=== PATIENT | male | born 1990 | race Caucasian/White ===

== ENCOUNTER → 2020-04-21 11:13 | Outpatient (BNVA) | payer SELFPAY | PROVIDERS: PCP Internal Medicine; Visit Provider Internal Medicine | DX: Z76.89 Persons encountering health services in other specified circumstances (principal) ==

== ENCOUNTER 2024-02-26 08:13 | Outpatient (AMB) | payer BC, SELFPAY ==
--- NOTE | 2024-02-26 08:24 | MHC.OFFWIV ---
Intake Vital Signs 02/26/24 08:25 Height 5 ft 9 in Weight 202 lb BMI 29.8 BP 128/84 Blood Pressure Location Lt brachial Position Sitting Pulse 81 Pulse Source Pulse Oximeter Temp 98.0 F Temp Source Oral Pulse Oximetry (%) 98 Oxygen Delivery Method Room Air Intake Visit Reasons: [employer] Gout flare Intake Note: pt c/o gout flare. RT big toe. Started Patient Tobacco Use Status: Current everyday Tobacco user Allergies amoxicillin [AMOXICILLIN] Allergy (Intermediate, Verified 02/26/24 08:25) RASH Do you need a note to return to daycare/school/sports/work: No HPI HPI Comments History of Present Illness Details Patient is a 34-year-old male complaining of ?gout flare in his right big toe. He states it has been getting worse for the last 2 days but last night it got really bad after dinner and he did not sleep all night long because the pain. He states he has had gout flares in the past so he is aware of what they feel like. PFSH Social History Patient Tobacco Use Status: Current everyday Tobacco user Review of Systems Const All systems reviewed & are unremarkable except as noted in HPI and below Physical Exam Vital Signs: Last Vital Signs Temp 98.0 F 02/26/24 08:25 Pulse 81 02/26/24 08:25 BP 128/84 02/26/24 08:25 Pulse Ox 98 02/26/24 08:25 Oxygen Delivery Method Room Air 02/26/24 08:25 BMI result Body Mass Index 29.8 Const General: cooperative, healthy appearing, comfortable, no acute distress and well developed Orientation/consciousness: patient oriented x3 Limitations: no limitations HEENT Head: Yes normal to inspection Eyes General: appearance normal, both eyes and all related structures Neck Neck: Yes normal visual inspection and Yes full ROM Resp Effort & Inspection: normal respiratory effort and able to speak in complete sentences Skin General skin exam: no rashes or lesions noted Neuro General: patient oriented x3 Extrem Other: Right foot, 1st toe: Tender to palpation on the joint, no signs of infection noted, no ecchymosis, no edema General: Yes normal to inspection Assessment & Plan Assessment & Plan (1) Gout flare: Code(s): M10.9 - Gout, unspecified Qualifiers: Gout site: foot Gout etiology: unspecified cause Laterality: right Qualified Code(s): M10.9 - Gout, unspecified Plan: Sent colchicine to pharmacy Plan See above Medications: New colchicine On day 1, take 2 tablets followed by 1 tablet 1 hour later. Do not exceed 3 tablets in 24 hours. On day 2 and 3, take 1 tablet every 12 hours. 0.6 mg PO DAILY 7 tabs 0RF gout fla M10.9 - Gout, unspecified Coding Level of Care Code New Pt Level 3 (98293) Diagnoses Acute gout of right foot, unspecified cause M10.9 Gout site: foot Gout etiology: unspecified cause Laterality: right
[2024-02-26 08:25] VITALS: BP 128/84; PULSE 81; TEMP 36.7; O2SAT 98; BMI 29.8
== END 2024-02-26 08:48 | disposition home or self-care (01) ==
PROVIDERS: PCP Internal Medicine; Visit Provider Physician Assistant
DX: M10.9 Gout, unspecified (principal)
CPT/HCPCS: 99203

== ENCOUNTER 2025-04-13 07:42 | Outpatient (AMB) | payer BC, SELFPAY ==
--- OUTSIDE RECORDS SUMMARY | 2025-04-13 07:44 | XMS_ITS | Clinical Summary ---
Author Organization [facility] Address [address] [address] Phone Care Team Providers Care Desk Top Publisher Name Role Phone Madi Reid MD Unavailable Allergies Active Allergy Reactions Criticality Noted Date Comments Amoxicillin-Pot Clavulanate Unknown 07/03/20 17 Skin falls off Medications naproxen (NAPROSYN) 500 MG tabletIndication s:Acute gout of ankle, unspecified cause, unspecified laterality Take 1 tablet (500 mg total) by mouth 2 (two) times a day with meals. 30 tablet 1 8 Active triamcinolone acetonide 0.1 % creamIndications :Contact dermatitis, unspecified contact dermatitis type, unspecified trigger Apply topically 2 (two) times a day. 30 g 9 Active cyclobenzaprine (FLEXERIL) 10 MG tabletIndication s:Muscle spasm Take 1 tablet (10 mg total) by mouth 3 (three) times a day as needed. 90 tablet 9 Active colchicine (COLCRYS) 0.6 mg tabletIndication s:Pain and swelling of toe of right foot Take 1 tablet (0.6 mg total) by mouth 2 (two) times a day. 30 tablet 1 9 Active lamoTRIgine (LAMICTAL) 150 MG tabletIndication s:Bipolar 1 disorder Take 1 tablet (150 mg total) by mouth daily. 90 tablet 2 0 Active escitalopram oxalate (LEXAPRO) 20 MG tabletIndication s:Bipolar 1 disorder Take 1 tablet (20 mg total) by mouth daily. 90 tablet 2 0 Active Active Problems Problem Noted Date Diagnosed Date Mixed hyperlipidemia 07/03/2017 Marijuana use 07/03/2017 Overview (07/03/2017): He does this for anxiety, and tremor. Tremor 07/03/2017 Overview (07/03/2017): Since CHiari surgery, probably not essential tremor. Anxiety 06/20/2017 Bipolar 1 disorder 06/20/2017 Overview (12/24/2018): Restart meds 2 wks apart, see Dr Reid. Borderline personality disorder 06/20/2017 Chiari I malformation 06/20/2017 GERD (gastroesophageal reflux disease) 7 Gout 06/20/2017 Hemiparesis 06/20/2017 Irritable bowel syndrome 06/20/2017 Obesity 06/20/2017 SESAR (obstructive sleep apnea) 06/20/2017 Peripheral neuropathic pain 06/20/2017 Social anxiety disorder 06/20/2017 Family History Medical History Relation Comments Diabetes mellitus Father Diabetes melli tus Diabetes mellitus Maternal Grandfather Diabetes mellitus Relation Status Comments Brother Alive (Age Ramon) Father Maternal Grandfather Mother Alive Social History Tobacco Use Types Packs/Day Years Used Date Smoking Tobacco: Never Assessed Child or Family Care Answer Date Record ed Do you have problems with on e of the following making it difficult for you to work, study, or receive health care? I choose not to answer 07/02/2018 Education Answer Date Recorded Are you interested in more education? Not on cathy e 11/10/2022 Are you concerned about learning? Not on file 11/10/2022 No 11/10/2022 No 11/10/2022 Food Answer Date Recorded Within the past 6 months we worried whether our food would run out before we got money to buy more. Never True 07/02/2018 Within the past 6 months the food we bought just didn't last and we didn't have enough money to get more. I choose not to answer 07/02/2018 Paying for Meds Answer Date Recorded Do you have trouble paying for medicines? I noel se not to answer 07/02/2018 Paying Utility Bills Answer Date Record ed Do you have trouble paying y our heating or electricity bill? I choose not to answer 07/02/2018 Transportation Answer Date Recorded Has the lack of transportati on kept you from medical appointments or from getting medications? No 07/02/2018 Digital Access Answer Date Recorded No 12/11/2022 No 12/11/2022 Reliable internet access at home? Not on file 12/11/2022 Device with a working camera? Not on file Sex and Gender Information Value Date Recorded Sex Assigned at Not on file Legal Sex Male 9:08 PM EDT Gender Identity Not on file Sexual Orientation Not on file Last Filed Vital Signs Vital Sign Reading Time Taken Comments Blood Pressure 130/80 12/24/2018 4:40 PM EDT Pulse 74 12/24/2018 4:40 PM EDT Temperature 36.4 C (97.5 F) 11/29/2015 9:03 AM EDT Respiratory Rate - - Oxygen Saturation 98% 12/24/2018 4:40 PM EDT Inhaled Oxygen Concentration - - Weight 122.9 kg (271 lb) 12/24/2018 4:40 PM EDT Height 172.7 cm (5' 7.99 ) 07/02/2018 1:53 PM ES T Body Mass Index 41.22 07/02/2018 1:53 PM EST Plan of Treatment Health Maintenance Due Date Last Done Comments DEPRESSION SCREENING 2000 SMOKING Hx and SMOKELESS TOBACCO SCREENING 01/27/2001 HEPATITIS C SCREENING 01/27/2006 HIV ONE-TIME SCREENING (18-6 5 YEARS) 01/27/2006 Adult Td,Tdap Booster 12/27/2020 12/27/2010 LIPID PANEL 07/03/2022 07/03/2017, 07/03/2017, 10/26/2016 INFLUENZA VACCINE (#1) 2025 4, 07/26/2012 COVID-19 VACCINE ( - 2024-2 6 season) 2025 12/07/2020 HEPATITIS A VACCINES Aged Out No long er eligible based on patient's age to complete this topic HIB VACCINES Aged Out No longer eligi ble based on patient's age to complete this topic MENINGOCOCCAL VACCINES (ACWY) Aged Out No longer eligible based on patient's age to complete this topic MENINGOCOCCAL VACCINES (B) Aged Out N o longer eligible based on patient's age to complete this topic PNEUMOCOCCAL VACCINES (0-49 years) Aged Out No longer eligible b ased on patient's age to complete this topic Medical Devices Not on file Procedures Procedure Name Priority Date/Time Associated Diagnosis Comments LIPID PANEL Routine 07/03/2017 1:40 PM EST Mixed hyperlipidemia from Last 3 Months or Most Recently Relevant to Health Maintenance Results * Lipid panel (07/03/2017 1:40 PM EST) HDL 36 mg/dL [facility] Comment: Interpretation: Risk Level Males Decreased >45 mg/dL Average 40-45 mg/dL Increased <40 mg/dL CHOLESTEROL 162 0 - 240 mg/dL [facility] TRIGLYCERIDES 158 30 - 160 mg/dL [facility] LDL 94 50 - 129 mg/dL [facility] Comment: LDL levels in terms of risk for coronary heart disease: <100 mg/dL: Optimal 100-129 mg/dL: Near or above optimal 130-159 mg/dL: Borderline high 160-189 mg/dL: High >190 mg/dL: Very High CARDIAC RISK RATIO 4.5 3.4 - 5.0 [facility] Blood 07/03/2017 1:40 PM EST 07/03/2017 1:43 PM EST Madi Hurtado MD LAB BLOOD ORDERABLES Final Resu lt [facility] [address] [place] [address] from Last 3 Months or Most Recently Relevant to Health Maintenance Care Teams Desk Top Publisher Relationship Specialty Start Date End [place] [address] Historical LMR Provider 05/05/17 Additional Source Comments The information contained in this document represents components of the legal health record. It is not the complete legal health record.[facility]
[2025-04-13 07:45] VITALS: BP 140/82; PULSE 86; TEMP 36.7; O2SAT 98
--- NOTE | 2025-04-13 07:45 | AM.OFFWIN_ITS ---
Intake Vital Signs 04/13/25 07:45 Height 5 ft 9 in BMI Reason not done Patient refused/unable BP 140/82 H Blood Pressure Location Lt brachial Position Sitting Pulse 86 Pulse Source Pulse Oximeter Temp 98.0 F Temp Source Oral Pulse Oximetry (%) 98 Oxygen Delivery Method Room Air Intake Visit Reasons: ep abscess in left inside of mouth Patient Tobacco Use Status: Current everyday Tobacco user Allergies amoxicillin (AMOXICILLIN) Allergy (Intermediate, Verified 04/13/25 07:45) RASH Do you need a note to return to daycare/school/sports/work: Yes HPI HPI Comments History of Present Illness Details 35 y/o Male Patient who presents to the walk in clinic with c/o Oral Abscess left Upper Mouth (inside) since Sunday. Reports Pain Left upper Jaw - near the Back Teeth radiating to his Left Neck. He has been using Oral Gel OTC with good relief. Denies Fevers, chills, nausea or vomiting. Patient does not have Dental insurance or a Dentist at this time. [facility] Medical History (Updated 04/13/25 @ 08:05 by Teri Wilson NP) Oral pain Social History Patient Tobacco Use Status: Current everyday Tobacco user Review of Systems Const All systems reviewed & are unremarkable except as noted in HPI and below Physical Exam Vital Signs: Last Vital Signs Temp 98.0 F 04/13/25 07:45 Pulse 86 04/13/25 07:45 BP 140/82 H 04/13/25 07:45 Pulse Ox 98 04/13/25 07:45 Oxygen Delivery Method Room Air 04/13/25 07:45 Const General: no acute distress Nutritional Appearance: overweight Orientation/consciousness: patient oriented x3 HEENT Head: Yes normocephalic Ears: TM abnormal obstructed by cerumen bilateral General nose exam: Normal external nose present Face and sinus: Yes sinuses nontender Mouth: moist mucous membranes Teeth and gingiva: fair dentition and other (Unable to visualized any Gum swelling, irritation or abscess. ) Throat: Yes uvula midline and No peritonsillar mass Neck Neck: Yes full ROM and Yes no lymphadenopathy Neuro General: patient oriented x3, gait normal and moves all extremities Psych Speech and movement: Normal speech and movement present Assessment & Plan Assessment & Plan (1) Oral pain: Code(s): K13.79 - Other lesions of oral mucosa Plan: Unable to visualized Oral Abscess, Gum Irritation at the reported Area. He does have Fair Dentition - alot of yarsanism I strongly Advised for the Patient to Obtain a Dentist for further Evaluation - he needs to have Dental Xray Ordered Doxy 100 mg BID for Empirical Tx (Pt allergic to PCN) Medications: New doxycycline hyclate 100 mg PO BID 10 caps 0RF K13.79 - Other lesions of oral mucosa Coding Level of Care Code Est Pt Level 4 (13292) Diagnoses Oral pain K13.79 Time Spent (min) 20
== END 2025-04-13 08:06 | disposition home or self-care (01) ==
PROVIDERS: PCP Internal Medicine; Visit Provider Nurse Practitioner Family
DX: K13.79 Other lesions of oral mucosa (principal)